=== PATIENT | male | born 1955 | race Caucasian/White ===

== ENCOUNTER 2016-12-16 19:17 | Emergency (ER) | payer OTHER ==
[2016-12-16] MEDS ORDERED: KETOROLAC TROMETHAMINE 60 MG/2 ML VIAL IM ONE (19:34)
[2016-12-16] MEDS ORDERED: DEXAMETHASONE SOD PHOS 4 MG/ML VIAL IM ONE (19:34)
--- NOTE | 2016-12-16 19:42 | ED Physician Documentation ---
General Adult - HISTORIAN Historian: patient, child (daughter) - HPI Stated Complaint: Right Foot/Knee Pain "Gout" Chief Complaint: General Adult Additional Information: One week of increasing pain right leg from knee to foot. Worse today. No injury. No SOB. - ROS CONST: no problems MS/SKIN/LYMPH: denies: calf pain - PAST HX Past History: AMI, COPD, A-Fib, CHF, hypertension Other History: other (polio as a child, right lower leg smaller) Allergies/Adverse Reactions: Allergies Allergy/AdvReac Type Severity Reaction Status Date / Time Penicillins Allergy Intermediate Hives Verified 12/16/16 19:23 Home Medications: Ambulatory Orders Medication Instructions Recorded Allopurinol [Zyloprim] 100 mg PO QD #30 tablet 12/16/16 - SOCIAL HX Smoking History: non-smoker - FAMILY HX Family History: No - VITAL SIGNS Vital Signs: Vital Signs Temp Pulse Resp BP Pulse Ox 98 F 81 18 130/45 98 12/16/16 19:20 12/16/16 19:20 12/16/16 19:20 12/16/16 19:20 12/16/16 19:20 - REVIEWED ASSESSMENTS Nursing Assessment Reviewed: Yes Vitals Reviewed: Yes ED Results Lab/Radiology - Orders Orders: ED Orders Category Date Time Status CBC/PLATELET/DIFF Routine Lab 12/16/16 Ordered CMP Routine Lab 12/16/16 Ordered URIC ACID Stat Lab 12/16/16 Ordered Dexamethasone Sod Phosphate [Decadron] Med 12/16/16 19:34 Discontinued 12 mg IM NOW ONE Ketorolac Tromethamine [Toradol] Med 12/16/16 19:34 Discontinued 60 mg IM NOW ONE General Adult Physical Exam - PHYSICAL EXAM GENERAL APPEARANCE: obese EENT: eye inspection normal, ENT inspection normal NECK: normal inspection, supple RESPIRATORY: no resp distress, breath sounds normal CVS: reg rate & rhythm, heart sounds normal RECTAL: deferred BACK: normal inspection SKIN: warm/dry, normal color (except RLE with erythema foot, rosamaria 1st MTP) EXTREMITIES: tenderness (right foot and knee. No Wale's sign or masses calf. ) NEURO: CN's nml as tested, motor nml, sensation nml Discharge Clincal Impression: Gout attack Qualifiers: Gout site: unspecified site Gout etiology: unspecified cause Qualified Code(s) : M10.9 - Gout, unspecified Prescriptions: Allopurinol [Zyloprim] 100 mg PO QD #30 tablet Referrals: Radha Santiago MD [Primary Care Provider] - 2 Days Additional Instructions: See Dr. Santiago in a week so that your medication can be adjusted. Drink more water. Home Medications: Ambulatory Orders Allopurinol [Zyloprim] 100 mg PO QD #30 tablet 12/16/16 Condition: Fair Disposition: HOME, SELF-CARE Decision to Admit: NO Decision Time: 20:27
[2016-12-16 19:55] LABS: BASOPHILS % 0.4 (0.0-1.5); EOSINOPHILS % 1.9 % (0.0-6.8); LYMPHOCYTES # 2.7 # k/uL (0.6-4.0); MEAN CORPUSCULAR HEMOGLOBIN 29.7 pg (28.0-34.0); MONOCYTES # 0.7 # k/uL (0.0-0.9); MONOCYTES % 5.6 % (0.0-11.0); NEUTROPHILS # 8.7 # k/uL (1.4-7.7)
[2016-12-16 20:45] VITALS: BP 122/43
== END 2016-12-16 20:44 | disposition home or self-care (01) ==
LOC: ED 19:17
DX: M10.9 Gout, unspecified (principal); I10 Essential (primary) hypertension; J44.9 Chronic obstructive pulmonary disease, unspecified; I50.9 Heart failure, unspecified
CPT/HCPCS: 80053; 84550; 85025; 99283; J1100; J1885

== ENCOUNTER 2016-12-23 15:37 | Outpatient (CLI) | payer OTHER ==
--- NOTE | 2016-12-23 18:47 | Diagnostic Imaging Report ---
[facility] [address] [facility].[address] [address] Report Submission Date: Dec 23, 2016 6:35:04 PM LACROSSE COACH Patient Study Name: TONYA PARIKH Date: Dec 23, 2016 3:47:53 PM LACROSSE COACH Modality Type: US Gender: M Description: UNILAT LTD STDY EXT VEINS : 57 Institution: [facility] Physician: DUNCAN CALDWELL - MIRTA Right leg venous Doppler Clinical history: Right leg swelling Findings: The right external iliac vein, common femoral vein, femoral vein, popliteal vein , upper saphenous vein and calf veins demonstrate normal compression and color Doppler signal. There is right calf edema. Impression: No right lower extremity dvt. Electronically signed on Dec 23, 2016 6:35:04 PM LACROSSE COACH by: Mt DUARTE
== END 2016-12-23 15:40 ==
LOC: RAD 15:37
PROVIDERS: ATTEND Family Medicine
DX: M79.661 Pain in right lower leg (principal)
CPT/HCPCS: 93971

== ENCOUNTER 2017-01-20 15:52 | Outpatient (CLI) | payer OTHER | END 2017-01-20 16:00 | LOC: NEPHRO 15:52 | PROVIDERS: ATTEND Internal Medicine Nephrology | DX: I12.9 Hypertensive chronic kidney disease with stage 1 through stage 4 chronic kidney disease, or unspecified chronic kidney disease (principal); N18.9 Chronic kidney disease, unspecified; N17.9 Acute kidney failure, unspecified; E87.6 Hypokalemia | CPT/HCPCS: 99214 ==

== ENCOUNTER 2017-02-04 16:51 | Emergency (ER) | payer OTHER ==
[2017-02-04] MEDS ORDERED: KETOROLAC TROMETHAMINE 60 MG/2 ML VIAL ONE (17:33)
[2017-02-04] MEDS: KETOROLAC TROMETHAMINE 60 MG/2 ML VIAL IM ONE (17:35)
--- NOTE | 2017-02-04 17:37 | ED Physician Documentation ---
Upper Extremity Problem - HISTORIAN Historian: patient - HPI Stated Complaint: right shoulder pain Chief Complaint: Upper Extremity Problem Location: R shoulder Onset: days ago Timing: worse Recent Injury: No Exacerbated By: change in position Relieved By: rest Quality: pain Further Comments: yes (61 year old male patient presents with right shoulder pain. Patient denies any injury, denies heavy lifting. Patient states his daughter was concerned it was his heart, so he came to the ER.) - ROS CONST: no problems EYES/ENT: none CVS/RESP: none GI/: none - PAST HX Past History: diabetes Type 2, other (CHF, gout) Other History: hyperlipidemia, hypertension Allergies/Adverse Reactions: Allergies Allergy/AdvReac Type Severity Reaction Status Date / Time Penicillins Allergy Intermediate Hives Verified 02/04/17 17:00 Home Medications: Ambulatory Orders Medication Instructions Recorded Allopurinol [Zyloprim] 100 mg PO QD #30 tablet 12/16/16 Ketorolac Tromethamine [Toradol] 10 mg PO TID #15 tablet 02/04/17 - SOCIAL HX Smoking History: cigarettes - FAMILY HX Family History: none - VITAL SIGNS Vital Signs: Vital Signs Temp Pulse Resp BP Pulse Ox 78 16 134/57 95 02/04/17 18:10 02/04/17 18:10 02/04/17 18:10 02/04/17 18:10 - REVIEWED ASSESSMENTS Nursing Assessment Reviewed: Yes Vitals Reviewed: Yes Progress - Progress Progress: Patient unsure of gout medication, Does not think he is currently on allipurinol. Uric acid 9.5 today, much improved since last visit. Instructed to follow up with Dr Barrett for gout maintenance medication changes. Medicated for shoulder pain with toradol while in Er. ED Results Lab/Radiology - Lab Results Lab Results: Lab Results 02/04/17 17:45 Uric Acid 9.8 mg/dL H mg/dL (2.0-7.8) - Radiology Radiology Impressions: Right shoulder 2 views Clinical history pain Technique internal and external rotation Findings: There is no fracture dislocation. Arthritic changes are present at the ac joint and glenohumeral joint. The clavicles intact. The adjacent right lung field is clear. Impression: Arthritic changes with no acute bony pathology - Orders Orders: ED Orders Category Date Time Status SHOULDER 2 VIEWS OR MORE [RAD] Stat Exams 02/04/17 Completed URIC ACID Stat Lab 02/04/17 17:45 Completed Ketorolac Tromethamine [Toradol] Med 02/04/17 17:33 Discontinued 60 mg .ROUTE .STK-MED ONE Ketorolac Tromethamine [Toradol] Med 02/04/17 17:33 Discontinued 60 mg IM NOW ONE Upper Extremity Problem - EXAM General Appearance: no acute distress, alert Skin: normal color, warm/dry, NR, INT, PAL, DR Shoulder Exam: normal inspection, no evidence of injury, normal ROM, bone tenderness (along clavicle), soft tissue tenderness. No: deformity, limited ROM , swelling Elbow/Forearm Exam: normal inspection, non-tender, no evidence of injury, normal ROM Neuro/Tendon: normal sensation, normal motor functions, normal tendon functions CVS: reg rate & rhythm, heart sounds normal, equal pulses, no murmur, no gallop , PMI nml, no JVD, no friction rub, 24 Peripheral: sensation nml, motor nml Central: oriented X3, CN's nml as tested, motor nml, sensation nml, mood/affect nml Discharge Clincal Impression: Elevated blood uric acid level Right shoulder pain Qualifiers: Chronicity: acute Qualified Code(s): M25.511 - Pain in right shoulder Prescriptions: Ketorolac Tromethamine [Toradol] 10 mg PO TID #15 tablet Referrals: Logan Barrett MD [Primary Care Provider] - 2 Days Additional Instructions: Ice Rest Elevation If you are unable to bear weight and continuing to have signficant pain on day 3 -4; see your PCP for re-evaluation and additional xrays. You may use Tylenol every 4hour as needed for pain. Limit your dose to less than 4 G per day. Do not take ibuprofen, aleve, naproxen or any other NSAID while you are on toradol. Follow up with Dr Barrett after completing your prescription if your pain continues. Home Medications: Ambulatory Orders Allopurinol [Zyloprim] 100 mg PO QD #30 tablet 12/16/16 Ketorolac Tromethamine [Toradol] 10 mg PO TID #15 tablet 02/04/17 Condition: Stable Disposition: 01 HOME, SELF-CARE Decision to Admit: NO Decision Time: 20:48
[2017-02-04 18:23] VITALS: BP 134/57
--- NOTE | 2017-02-04 19:03 | Diagnostic Imaging Report ---
ALLEN FONTANA (DANYA) - [place] [facility] [address] [facility] [address] [address] Report Submission Date: Feb 04, 2017 5:36:52 PM CDT Patient Study Name: TONYA PARIKH Date: Feb 04, 2017 5:20:09 PM CDT Modality Type: CR Gender: M Description: SHOULDER : 57 Institution: [facility] Physician: LALEN FONTANA) - ER Right shoulder 2 views Clinical history pain Technique internal and external rotation Findings: There is no fracture dislocation. Arthritic changes are present at the ac joint and glenohumeral joint. The clavicles intact. The adjacent right lung field is clear. Impression: Arthritic changes with no acute bony pathology Electronically signed on Feb 04, 2017 5:36:52 PM CDT by: Chucky DUARTE
== END 2017-02-04 18:10 | disposition home or self-care (01) ==
LOC: ED 16:51
DX: M10.9 Gout, unspecified (principal); M25.511 Pain in right shoulder
CPT/HCPCS: 73030; 84550; 96372; 99283; J1885

== ENCOUNTER 2017-02-17 14:36 | Outpatient (CLI) | payer OTHER ==
[2017-02-17 15:10] LABS: BASOPHILS % 0.4 (0.0-1.5); EOSINOPHILS % 2.2 % (0.0-6.8); MEAN CORPUSCULAR HEMOGLOBIN 29.1 pg (28.0-34.0); MEAN CORPUSCULAR VOLUME 91.5 fl (80.0-100.0); MONOCYTES % 7.9 % (0.0-11.0); NEUTROPHILS # 8.2 # k/uL (1.4-7.7)
[2017-02-17 15:22] LABS: eGFR (African) > 60; eGFR (Non-African) 60
== END 2017-02-17 14:37 ==
LOC: NEPHRO 14:36
PROVIDERS: ATTEND Internal Medicine Nephrology
DX: N17.9 Acute kidney failure, unspecified (principal); I12.9 Hypertensive chronic kidney disease with stage 1 through stage 4 chronic kidney disease, or unspecified chronic kidney disease; N18.9 Chronic kidney disease, unspecified
CPT/HCPCS: 36415; 80053; 83970; 85025

== ENCOUNTER 2017-04-21 15:33 | Outpatient (CLI) | payer OTHER ==
[2017-04-21 16:53] LABS: MEAN CORPUSCULAR HEMOGLOBIN 29.8 pg (28.0-34.0); MEAN CORPUSCULAR VOLUME 90.3 fl (80.0-100.0)
[2017-04-21 16:54] LABS: BASOPHILS % 0.9 (0.0-1.5); EOSINOPHILS % 2.7 % (0.0-6.8); MONOCYTES % 7.4 % (0.0-11.0); NEUTROPHILS # 5.3 # k/uL (1.4-7.7)
[2017-04-21 17:14] LABS: eGFR (African) > 60; eGFR (Non-African) > 60
== END 2017-04-21 15:34 ==
LOC: NEPHRO 15:33
PROVIDERS: ATTEND Internal Medicine Nephrology
DX: I10 Essential (primary) hypertension (principal); N18.9 Chronic kidney disease, unspecified
CPT/HCPCS: 36415; 80053; 85025; G0463

== ENCOUNTER 2017-07-21 14:46 | Outpatient (CLI) | payer OTHER | END 2017-07-21 14:47 | LOC: NEPHRO 14:46 | PROVIDERS: ATTEND Internal Medicine Nephrology | DX: I10 Essential (primary) hypertension (principal) | CPT/HCPCS: G0463 ==

== ENCOUNTER 2017-11-30 13:55 | Outpatient (CLI) | payer OTHER ==
[2017-11-30 14:09] LABS: BASOPHILS % 1.1 (0.0-1.5); EOSINOPHILS % 5.4 % (0.0-6.8); MEAN CORPUSCULAR HEMOGLOBIN 30.9 pg (28.0-34.0); MEAN CORPUSCULAR VOLUME 91.4 fl (80.0-100.0); MONOCYTES % 6.7 % (0.0-11.0); NEUTROPHILS # 6.5 # k/uL (1.4-7.7)
[2017-11-30 15:20] LABS: eGFR (African) > 60; eGFR (Non-African) 55
== END 2017-11-30 14:00 ==
LOC: LAB 13:55
PROVIDERS: ATTEND Family Medicine
DX: I10 Essential (primary) hypertension (principal); N18.2 Chronic kidney disease, stage 2 (mild)
CPT/HCPCS: 36415; 80048; 84550; 85025

== ENCOUNTER 2017-12-01 14:00 | Outpatient (CLI) | payer OTHER | END 2017-12-01 14:02 | LOC: NEPHRO 14:00 | PROVIDERS: ATTEND Internal Medicine Nephrology | DX: I10 Essential (primary) hypertension (principal); I50.9 Heart failure, unspecified; N18.9 Chronic kidney disease, unspecified | CPT/HCPCS: 99213 ==

== ENCOUNTER 2018-03-01 09:39 | Outpatient (CLI) | payer OTHER ==
[2018-03-01 10:51] LABS: BASOPHILS % 0.8 (0.0-1.5); EOSINOPHILS % 4.6 % (0.0-6.8); MEAN CORPUSCULAR HEMOGLOBIN 30.3 pg (28.0-34.0); MEAN CORPUSCULAR VOLUME 91.9 fl (80.0-100.0); MONOCYTES % 5.9 % (0.0-11.0)
[2018-03-01 10:58] LABS: eGFR (African) > 60; eGFR (Non-African) 60
== END 2018-03-01 09:40 ==
LOC: LAB 09:39
PROVIDERS: ATTEND Internal Medicine Nephrology
DX: I10 Essential (primary) hypertension (principal); I50.9 Heart failure, unspecified; N18.9 Chronic kidney disease, unspecified
CPT/HCPCS: 36415; 80053; 85025

== ENCOUNTER 2018-03-02 15:42 | Outpatient (CLI) | payer OTHER | END 2018-03-02 15:44 | LOC: NEPHRO 15:42 | PROVIDERS: ATTEND Internal Medicine Nephrology | DX: N18.9 Chronic kidney disease, unspecified (principal); I50.9 Heart failure, unspecified; I10 Essential (primary) hypertension | CPT/HCPCS: 99213 ==

== ENCOUNTER 2018-05-03 14:21 | Outpatient (CLI) | payer OTHER ==
[2018-05-03 14:36] LABS: MEAN CORPUSCULAR HEMOGLOBIN 30.1 pg (28.0-34.0); MEAN CORPUSCULAR VOLUME 91.6 fl (80.0-100.0)
[2018-05-03 14:37] LABS: BASOPHILS % 0.7 (0.0-1.5); EOSINOPHILS % 5.2 % (0.0-6.8); MONOCYTES % 3.3 % (0.0-11.0); NEUTROPHILS # 5.8 # k/uL (1.4-7.7)
[2018-05-03 15:04] LABS: eGFR (African) > 60; eGFR (Non-African) > 60
== END 2018-05-03 14:22 ==
LOC: LAB 14:21
PROVIDERS: ATTEND Internal Medicine Nephrology
DX: N18.9 Chronic kidney disease, unspecified (principal); I50.9 Heart failure, unspecified; I10 Essential (primary) hypertension
CPT/HCPCS: 36415; 80053; 83970; 85025

== ENCOUNTER 2018-05-04 14:47 | Outpatient (CLI) | payer OTHER | END 2018-05-04 14:50 | LOC: NEPHRO 14:47 | PROVIDERS: ATTEND Internal Medicine Nephrology | DX: I50.9 Heart failure, unspecified (principal); I10 Essential (primary) hypertension; N18.9 Chronic kidney disease, unspecified | CPT/HCPCS: 99213 ==

== ENCOUNTER 2018-09-14 13:40 | Outpatient (CLI) | payer OTHER | END 2018-09-14 13:42 | LOC: NEPHRO 13:40 | PROVIDERS: ATTEND Internal Medicine Nephrology | DX: I13.0 Hypertensive heart and chronic kidney disease with heart failure and stage 1 through stage 4 chronic kidney disease, or unspecified chronic kidney disease (principal) | CPT/HCPCS: 99213 ==

== ENCOUNTER 2019-02-08 14:05 | Outpatient (CLI) | payer OTHER | END 2019-02-08 14:07 | LOC: NEPHRO 14:05 | PROVIDERS: ATTEND Internal Medicine Nephrology | DX: I12.9 Hypertensive chronic kidney disease with stage 1 through stage 4 chronic kidney disease, or unspecified chronic kidney disease (principal); N18.3 Chronic kidney disease, stage 3 (moderate); N17.9 Acute kidney failure, unspecified; I50.9 Heart failure, unspecified | CPT/HCPCS: G0463 ==

== ENCOUNTER 2019-07-11 15:43 | Outpatient (CLI) | payer OTHER ==
[2019-07-11 16:07] LABS: eGFR (Non-African) > 60
[2019-07-11 16:10] LABS: BASOPHILS % 0.1 % (0.0-1.5); NEUTROPHILS # 6.3 # k/uL (1.4-7.7)
== END 2019-07-11 15:45 ==
LOC: LAB 15:43
PROVIDERS: ATTEND Family Medicine
DX: I10 Essential (primary) hypertension (principal)
CPT/HCPCS: 36415; 80053; 85025

== ENCOUNTER 2019-08-09 13:51 | Outpatient (CLI) | payer OTHER | END 2019-08-09 14:15 | LOC: NEPHRO 13:51 | PROVIDERS: ATTEND Internal Medicine Nephrology | DX: I10 Essential (primary) hypertension (principal); N17.9 Acute kidney failure, unspecified | CPT/HCPCS: 99213 ==